=== PATIENT | female | born 1990 | race Caucasian/White ===

== ENCOUNTER 2017-06-20 02:29 | Emergency (ER) | payer BC, OTHER ==
[~2017-06-20] VITALS: Ht 167.6 cm; Wt 94.8 kg
[2017-06-20 02:34] VITALS: Ht 167.6 cm; Wt 94.8 kg
[2017-06-20 03:04] VITALS: O2SAT 99
--- NOTE | 2017-06-20 05:38 | EMERGENCY ROOM VISIT NOTE ---
History Report prepared by Travis: Andrew Frey Under the Supervision of: Dr. Dyan Morton D.O. First contact with patient: 02:53 Chief Complaint: ALCOHOL OVERDOSE Stated Complaint: ALCOHOL OVERDOSE Nursing Triage Summary: Pt found by PD stumbling with friend, no sober friends with patient. History of Present Illness The patient is a 26 year old female who presents to the Emergency Room by EMS for evaluation of constant alcohol intoxication beginning shortly prior to arrival. She denies any falls or trauma. She denies any nausea or vomiting. The patient estimates that she had 2-3 drinks. She states that she normally has 3-4 drinks most weekends. The patient states that she was taken to the ED because she was unable to find a sober friend to watch her. HPI limited secondary to alcohol intoxication. Source of History: patient History Limited By: intoxication (alcohol) Onset: Shortly prior to arrival Quality: other (alcohol intoxication) Timing: constant Associated Symptoms: No nausea, No vomiting Review of Systems ROS limited secondary to alcohol intoxication. Past Medical & Surgical Unobtainable secondary to alcohol intoxication. Family History Unobtainable secondary to alcohol intoxication. Social History Smoking Status: Never Smoker Unobtainable secondary to alcohol intoxication. Current/Historical Medications No Active Prescriptions or Reported Meds Allergies Coded Allergies: No Known Allergies (Unverified , 06/20/17) Physical Exam Vital Signs Date Time Temp Pulse Resp B/P (MAP) Pulse Ox O2 Delivery O2 Flow Rate FiO2 06/20/17 06:36 104 20 97 06/20/17 06:06 108 20 97 06/20/17 06:01 99/67 06/20/17 05:59 108 21 97 06/20/17 05:30 135/82 06/20/17 05:29 111 21 97 06/20/17 05:01 118/80 06/20/17 04:59 108 20 98 06/20/17 04:39 103 06/20/17 03:04 99 Room Air 06/20/17 02:34 118 18 125/84 100 Room Air Physical Exam GENERAL: alert, well appearing, well nourished, no distress, non-toxic. Smells of alcohol. EYE EXAM: normal conjunctiva, PERRL and EOM's grossly intact OROPHARYNX: no exudate, no erythema, lips, buccal mucosa, and tongue normal and mucous membranes are moist NECK: supple, no nuchal rigidity, no adenopathy, non-tender LUNGS: Clear to auscultation. Normal chest wall mechanics HEART: no murmurs, S1 normal and S2 normal ABDOMEN: abdomen soft, non-tender, normo-active bowel sounds, no masses, no rebound or guarding. BACK: Back is symmetrical on inspection and there is no deformity, no midline tenderness, no CVA tenderness. SKIN: no rashes and no bruising UPPER EXTREMITIES: upper extremities are grossly normal. LOWER EXTREMITIES: No pitting edema. NEURO EXAM: Normal sensorium, cranial nerves II-XII grossly intact, normal speech, no gross weakness of arms, no gross weakness of legs. Medical Decision & Procedures Laboratory Results Test 06/20/17 02:36 06/20/17 03:26 Ethyl Alcohol mg/dL 248.0 mg/dl (0-3) Bedside Glucose 91 mg/dl (70-90) Laboratory results per my review. ED Course 0258: The patient was evaluated in room B4B. A complete history and physical exam was performed. 0645: Upon reevaluation, the patient is feeling better. I discussed the findings and the treatment plan with the patient. She verbalizes agreement and understanding. She was discharged home. Medical Decision Differential diagnosis: Etiologies such as alcohol intoxication, toxicologic, infection, hypoglycemia, electrolyte abnormalities, cardiac sources, intracerebral event, neurologic, as well as others were entertained. No hx of PE findings to suggest trauma, pt with stable VS, sobered in an expected manner. Tolerated po and had steady gait at time of DC. Discussed sx to watch/return for, she verbalized understanding and was agreeable with plan. Medication Reconcilliation Current Medication List: was personally reviewed by me Blood Pressure Screening Patient's blood pressure: Normal blood pressure Blood pressure disposition: Did not require urgent referral Impression Primary Impression: Alcoholic intoxication Scribe Attestation The scribe's documentation has been prepared under my direction and personally reviewed by me in its entirety. I confirm that the note above accurately reflects all work, treatment, procedures, and medical decision making performed by me. Departure Information Dispostion Home / Self-Care Prescriptions No Active Prescriptions or Reported Meds Patient Instructions My [facility] Additional Instructions Please drink responsibly in a safe location. Do not drink and drive. Please stay well-hydrated. If you have any new or concerning symptoms, please return the emergency room. Problem Qualifiers Primary Impression: Alcoholic intoxication Complication of substance-induced condition: uncomplicated Qualified Codes: F10.920 - Alcohol use, unspecified with intoxication, uncomplicated
[2017-06-20 06:01] VITALS: BP 99/67
[2017-06-20 06:36] VITALS: PULSE 104; O2SAT 97
== END 2017-06-20 07:03 | disposition home or self-care (01) ==
LOC: C.EDB 02:32
DX: F10.920 Alcohol use, unspecified with intoxication, uncomplicated (principal); Y90.8 Blood alcohol level of 240 mg/100 ml or more